=== PATIENT | male | born 1960 | race Two or more races ===

== ENCOUNTER 2019-08-07 22:27 | Emergency (ER) | payer OTHER ==
[~2019-08-07] VITALS: Ht 182.9 cm; Wt 113.4 kg
[2019-08-07] MEDS ORDERED: NORVASC10 MG (22:47)
[2019-08-09] MEDS ORDERED: FINASTERIDE5 MG PO (12:06)
[2019-08-09] MEDS ORDERED: CODE1TAB37 PO (12:06)
[2019-08-09] MEDS ORDERED: PROTONIX40 M1 PO (12:06)
[2019-08-09] MEDS ORDERED: XYZAL5 MG PO (12:07)
[2019-08-09] MEDS ORDERED: MICARDIS40 MG PO (12:07)
[2019-08-09] MEDS ORDERED: TAMS0.4C PO (12:07)
[2019-08-09] MEDS ORDERED: FENOFIBRIC ACI105 MG PO (12:07)
== END 2019-08-08 07:40 | disposition home or self-care (01) ==
LOC: ER 22:27
DX: N20.1 Calculus of ureter (principal); R10.32 Left lower quadrant pain

== ENCOUNTER 2019-08-09 10:36 | Outpatient (CLI) | payer OTHER ==
[~2019-08-09 10:36] MED LIST: NORVASC10 MG
[2019-08-09] MEDS ORDERED: PROTONIX40 M1 PO (12:06)
[2019-08-09] MEDS ORDERED: CODE1TAB37 PO (12:06)
[2019-08-09] MEDS ORDERED: FINASTERIDE5 MG PO (12:06)
[2019-08-09] MEDS ORDERED: FENOFIBRIC ACI105 MG PO (12:07)
[2019-08-09] MEDS ORDERED: MICARDIS40 MG PO (12:07)
[2019-08-09] MEDS ORDERED: TAMS0.4C PO (12:07)
[2019-08-09] MEDS ORDERED: XYZAL5 MG PO (12:07)
== END 2019-08-09 15:00 | disposition home or self-care (01) ==
LOC: LAB 10:36
DX: N20.0 Calculus of kidney (principal); R31.0 Gross hematuria; I10 Essential (primary) hypertension

== ENCOUNTER 2019-08-16 09:50 | Inpatient (IN) | payer OTHER ==
[~2019-08-16 09:50] MED LIST changes: +CODE1TAB37 PO; +FENOFIBRIC ACI105 MG PO; +FINASTERIDE5 MG PO; +MICARDIS40 MG PO; +PROTONIX40 M1 PO; +TAMS0.4C PO; +XYZAL5 MG PO
== END 2019-08-18 10:47 | disposition home or self-care (01) | DRG 661 ==
LOC: CIR.AMB 09:50 → SURG 11:45 → CIR.AMB 11:45 → EDSTATUS 11:45 → CIR.AMB 14:00 → SURH 08-17 03:40
PROVIDERS: ADMIT Urology
PROC: 0TC18ZZ Extirpation of Matter from Left Kidney, Via Natural or Artificial Opening Endoscopic (ICD-10-PCS; principal; 2019-08-17)
PROC: 0TFB8ZZ Fragmentation in Bladder, Via Natural or Artificial Opening Endoscopic (ICD-10-PCS; 2019-08-17)
PROC: BT1FZZZ Fluoroscopy of Left Kidney, Ureter and Bladder (ICD-10-PCS; 2019-08-17)
DX: N20.0 Calculus of kidney (principal); N21.0 Calculus in bladder

== ENCOUNTER → 2019-08-24 | Outpatient (CLI) | payer OTHER | END | disposition home or self-care (01) | LOC: RAD 10:05 | DX: N20.0 Calculus of kidney (principal) ==